=== PATIENT | female | born 1945 | race Native Hawaiian/Other Pacific Islander ===

== ENCOUNTER 2016-07-25 11:38 | Emergency (ER) | payer MEDICARE ==
[2016-07-25 11:52] VITALS: BMI 47.7
--- NOTE | 2016-07-25 11:54 | ED PDOC ---
Arrival/HPI - General Time Seen by Provider: 07/25/16 11:41 Historian: Patient - History of Present Illness Narrative History of Present Illness (Text): 07/25/16 11:46 70 y/o female, pmh including htn/hyperlipidemia/dm, nkda, c/o bilateral reis pain and rt. shoulder s/p injured in the [employer]. Pt. was pushing the shopping car, another person from behind leg go of the shopping car, twisted the rt. shoulder and she hit the bilateral reis region against her own car as she was holding on to her shopping cart tightly. Pt. has no neck or back injury , no LOC, able to recall the whole event, not on any antiplatete or anticoagulant, no flank or abdominal pain, no dizziness, no rash, no change in vision, no calf or thigh pain, no other medical or psychological complaints. Past Medical History - Provider Review Nursing Documentation Reviewed: Yes - Cardiac Hx Pacemaker: No - Neurological Hx Paralysis: No - Endocrine/Metabolic Hx Diabetes Mellitus Type 2: Yes - Hematological/Oncological Hx Blood Transfusions: No Hx Blood Transfusion Reaction: No - Musculoskeletal/Rheumatological Hx Musculoskeletal Disorders: No - Psychiatric Hx Emotional Abuse: No Hx Physical Abuse: No Hx Substance Use: No - Surgical History Hx Appendectomy: Yes Hx Section: Yes Hx Hysterectomy: Yes - Anesthesia Hx Anesthesia Reactions: No Hx Malignant Hyperthermia: No - Suicidal Assessment Feels Threatened In Home Enviroment: No Family/Social History - Physician Review Nursing Documentation Reviewed: Yes Family/Social History: Unknown Family HX Smoking Status: Never Smoked Hx Alcohol Use: No Hx Substance Use: No Allergies/Home Meds Allergies/Adverse Reactions: Allergies RAW CARROTS Allergy (Severe, Uncoded 07/25/16 12:00) ITCHY THROAT Home Medications: Home Meds Medication Instructions Recorded Confirmed Losartan/Hydrochlorothiazide 1 tab PO DAILY 05/07/12 03/02/16 [Hyzaar 12.5 mg-100 mg] Atenolol [Tenormin] 25 mg PO DAILY 02/28/16 03/02/16 Canagliflozin/Metformin HCl 1 tab PO BID 02/28/16 03/02/16 [Invokamet 50 mg-500 mg] Cyanocobalamin [Vitamin B12 1000 1,000 mcg PO DAILY 02/28/16 03/02/16 mcg Tab] Folic Acid 1 mg PO DAILY 02/28/16 03/02/16 Simvastatin [Zocor] 20 mg PO DAILY 02/28/16 03/02/16 Review of Systems - Review of Systems Constitutional: absent: Fatigue, Fevers Eyes: absent: Vision Changes ENT: absent: Hearing Changes Respiratory: absent: Cough Cardiovascular: absent: Chest Pain Gastrointestinal: absent: Abdominal Pain, Nausea, Vomiting Musculoskeletal: Arthralgias, Myalgias. absent: Back Pain, Neck Pain, Joint Swelling Neurological: absent: Headache, Dizziness, Focal Weakness, Gait Changes, Speech Changes, Facial Droop, Disequilibrium, Seizure Physical Exam Vital Signs Temp Pulse Resp BP Pulse Ox 07/25/16 13:54 80 16 156/84 H 98 07/25/16 11:52 97.8 F 95 H 18 164/85 H 96 - Systems Exam Head: Present: Atraumatic, Normocephalic, Other (no facial bony tenderness or swelling. ). No: Tenderness, Contusion, Swelling, Ecchymosis, Abrasion, Laceration Pupils: Present: PERRL Extroacular Muscles: Present: EOMI Conjunctiva: Present: Normal Ears: Present: NORMAL TM, Normal Canal. No: Erythema Mouth: Present: Moist Mucous Membranes Pharnyx: No: ERYTHEMA, EXUDATE, Muffled/Hoarse Voice, Strider, Soft Palate/ Uvular Edema Nose (External): Present: Atraumatic. No: Abrasion, Contusion, Laceration, Lesions Nose (Internal): Present: Normal Inspection, No Active Bleeding. No: Rhinorrhea , Septal Hematoma, Epistaxis Neck: Present: Normal Range of Motion, Trachea Midline. No: MIDLINE TENDERNESS , Paraspinal Tenderness, Lymphadenopathy Respiratory/Chest: Present: Clear to Auscultation, Good Air Exchange. No: Respiratory Distress, Accessory Muscle Use, Wheezes, Decreased Breath Sounds, Rales, Retracting, Rhonchi, Tachypneic, Tender to Palpation Cardiovascular: Present: Regular Rate and Rhythm, Normal S1, S2. No: Murmurs Abdomen: Present: Normal Bowel Sounds. No: Tenderness, Distention, Peritoneal Signs, Rebound, Guarding Back: Present: Normal Inspection Upper Extremity: Present: Normal Inspection, Normal ROM, Neurovascularly Intact , Capillary Refill < 2s, Other (Rt. shoulder: +ttp on the rt. anterior shoulder joint with no swelling, no ecchymosis or deformity, FROM without limitation, sensation intact, motor 5/5, +radial pulse, capillary refill< 2 seconds, neurovascular intact. ). No: Cyanosis, Edema, Deformity Lower Extremity: Present: Normal Inspection, Other (Bilateral lower extremities : visible 2-3 spots of ecchymosis noted on the mid anterior reis with approx. 3cm diameter, no skin breaking, no cellulitis or streaking, no ulcers, FROM without limitation, sensation intact, motor 5/5, +DPPT pulsese, negative justen and renae signs. ). No: Edema Neurological: Present: GCS=15, CN II-XII Intact, Speech Normal Skin: Present: Warm, Dry, Normal Color. No: Rashes Psychiatric: Present: Alert, Oriented x 3, Normal Insight, Normal Concentration Medical Decision Making ED Course and Treatment: 07/25/16 11:58 -Bilateral lower venuous doppler -Bilateral tibia/fibula xray, rt. shoulder xray -pt. refused pain med -observe and reassess 07/25/16 13:25 -Bilateral lower extremities venuous doppler: as per preliminary report, there is no DVT. -Bilateral tibia/fibula show no signs of fracture or dislocation. -Rt. shoulder show no fracture or dislocation but there is mild degenerative calcified tendon noted. -Pt. is stable to be discharged home. -Discharge home with shoulder sling, indomethacin for pain on the shoulder as needed, ice compression, follow up with your own pmd and orthopedic within 2 days, return to the ER for any new or worsening signs or symptoms. - RAD Interpretation Radiology Orders: 07/25/16 11:54 SHOULDER RIGHT [RAD] Stat TIBIA FIBULA LEFT [RAD] Stat TIBIA FIBULA RIGHT [RAD] Stat 07/25/16 11:59 DUPLEX LOWER EXTRM VEIN BILAT [US] Stat Bilateral lower extremities venuous doppler: as per preliminary report, there is no DVT. Rt. shoulder: no acute findings. Lt. tibia/fibula: unremarkable Rt. tibia/fibula: unremarkable Support Group Manager: Radiologist - PA / ROAD MACHINE RUNNER / Resident Statement /DO has reviewed & agrees with the documentation as recorded. Disposition/Present on Arrival - Present on Arrival Any Indicators Present on Arrival: No History of DVT/PE: No History of Uncontrolled Diabetes: No Urinary Catheter: No History of Decub. Ulcer: No History Surgical Site Infection Following: None - Disposition Have Diagnosis and Disposition been Completed?: Yes Diagnosis: Calcifying tendinitis of shoulder, Contusion of leg Disposition: HOME/ ROUTINE Disposition Time: 13:27 Patient Plan: Discharge Condition: GOOD Additional Instructions: Discharge home with shoulder sling, indomethacin for pain on the shoulder as needed, ice compression, follow up with your own pmd and orthopedic within 2 days, return to the ER for any new or worsening signs or symptoms. Prescriptions: Indomethacin [Indocin] 50 mg PO TID PRN #21 cap PRN Reason: Other Referrals: PCP,NO [Primary Care Provider] - Follow up with primary Carter Alas III, MD [Medical Doctor] - Follow up with primary [facility] [place] [Outside] - Follow up with primary Forms: WORK NOTE
[2016-07-25 12:00] VITALS: TEMP 97.8
--- NOTE | 2016-07-25 13:27 | US ---
HISTORY: Leg pain and swelling. Evaluate for DVT PHYSICIAN(S): Dean Crabtree MD. TECHNIQUE: Duplex sonography and color-flow Doppler with graded compression were used to evaluate the deep venous systems of both lower extremities. FINDINGS: The visualized deep venous systems of both lower extremities are sonographically normal and compressible. Normal wave forms and augmentation are seen. There is no sonographic evidence for deep venous thrombosis in the visualized segments of both lower extremities. IMPRESSION: No sonographic evidence for deep venous thrombosis in the visualized segments of both lower extremities.
--- NOTE | 2016-07-25 13:43 | RAD ---
PROCEDURE: Radiographs of the left tibia and fibula. HISTORY: fall x 2 hours COMPARISON: None available. TECHNIQUE: Frontal and lateral views obtained. FINDINGS: BONES: No fracture or destructive lesion. JOINT SPACES: Unremarkable. OTHER FINDINGS: None. IMPRESSION: Unremarkable radiographs of the left tibia and fibula.
--- NOTE | 2016-07-25 13:44 | RAD ---
PROCEDURE: Radiographs of the right tibia and fibula. HISTORY: fall x 2 hours COMPARISON: None available. TECHNIQUE: Frontal and lateral views obtained. FINDINGS: BONES: No fracture or destructive lesion. JOINT SPACES: Unremarkable. OTHER FINDINGS: None. IMPRESSION: Unremarkable radiographs of the right tibia and fibula.
--- NOTE | 2016-07-25 13:44 | RAD ---
PROCEDURE: Radiographs of the Right Shoulder HISTORY: fall x 2 hours COMPARISON: No prior. FINDINGS: BONES: Normal. No fracture. JOINTS: Normal. Glenohumeral and acromioclavicular joints preserved. No osteoarthritis. SOFT TISSUES: Small calcification adjacent to the greater tuberosity OTHER FINDINGS: None. IMPRESSION: No acute findings
[2016-07-25 13:55] VITALS: BP 156/84; PULSE 80; RESP 16; O2SAT 98
== END 2016-07-25 13:55 | disposition home or self-care (01) ==
LOC: ED 11:38
DX: S80.12XA Contusion of left lower leg, initial encounter (principal); S80.11XA Contusion of right lower leg, initial encounter; W22.8XXA Striking against or struck by other objects, initial encounter; Y92.512 Supermarket, store or market as the place of occurrence of the external cause; M75.31 Calcific tendinitis of right shoulder; I10 Essential (primary) hypertension

== ENCOUNTER 2018-06-04 12:41 | Outpatient (CLI) | payer MEDICARE | END 2018-06-04 12:42 | disposition home or self-care (01) | LOC: RAD 12:41 ==